=== PATIENT | female | born 2000 | race Caucasian/White ===

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

== ENCOUNTER 2021-10-21 13:14 | Emergency (ER) | payer BC ==
[~2021-10-21 13:14] MED LIST changes: +ZOFRAN4 MG PO
[2021-10-21] MEDS ORDERED: IBUPROFEN600 MG PO (14:50)
== END 2021-10-21 15:15 | disposition home or self-care (01) ==
LOC: ER1 13:14
DX: S60.221A Contusion of right hand, initial encounter (principal); Z88.1 Allergy status to other antibiotic agents; W22.01XA Walked into wall, initial encounter; Y92.009 Unspecified place in unspecified non-institutional (private) residence as the place of occurrence of the external cause
CPT/HCPCS: 73130; 99283